=== PATIENT | female | born 1955 | race Caucasian/White ===

== ENCOUNTER 2017-05-27 15:16 | Emergency (ER) | payer OTHER ==
--- NOTE | 2017-05-27 15:24 | PDOC ---
Rapid Medical Evaluation Time Seen by Provider: 05/27/17 15:22 Medical Evaluation: Allergies Allergy/AdvReac Type Severity Reaction Status Date / Time Penicillins Allergy Verified 05/27/17 15:22 shellfish derived Allergy Verified 05/27/17 15:21 Sulfa (Sulfonamide Allergy Verified 05/27/17 15:21 Antibiotics) 05/27/17 15:22 I have performed a brief in person evaluation of this patient. The patient presents with chief complaint of : rectal pain , "bowel hanging out of rectum" Pertinent PE findings: none I have ordered the following: none The patient will proceed to the ER for further evaluation.
[2017-05-27 15:29] VITALS: TEMP 98; BMI 31.8
--- NOTE | 2017-05-27 17:06 | PDOC ---
History of Present Illness <Iris Linares - Last Filed: 05/27/17 17:21> - General History Source: Patient Exam Limitations: No Limitations - History of Present Illness Initial Comments: 05/27/17 17:57 The patient is a 61 year old female, A0, both vaginal deliveries, with a significant PMH of NIDDM, HLD, and brain aneurysm who presents to the emergency department complaining of a rectal prolapse after a bowel movement earlier today that spontaneously reduced. The patient states she was not straining when she had the bowel movement. As per the , the patient did have two episodes of watery diarrhea earlier but patient denies any dysuria, frequency, urgency and hematuria. The patient had another bowel movement here in the ER and had a second rectal prolapse that spontaneously reduced. The patient denies chest pain, shortness of breath, headache and dizziness. Denies fever, chills, nausea, vomit, diarrhea and constipation. Denies dysuria, frequency, urgency and hematuria. Allergies: Penicillins, shellfish derives, sulfa Past surgical history: None reported. Social history: Former smoker. No reported alcohol or drug use. PCP: Dr. Shoemaker <Leda Watkins - Last Filed: 05/27/17 18:00> - General Chief Complaint: Pain Stated Complaint: RECTAL PROLAPSE Time Seen by Provider: 05/27/17 15:22 Past History - Past Medical History COPD: No Diabetes: Yes (NIDDM) Hypercholesterolemia: Yes Psychiatric Problems: Yes (DEPRESSION) Lung CA: No Other medical history: BRAIN ANEYRYSM - Suicide/Smoking/Psychosocial Hx Smoking History: Former smoker Have you smoked in the past 12 months: No If you are a former smoker, when did you quit?: 2007 Information on smoking cessation initiated: No Hx Alcohol Use: No Drug/Substance Use Hx: No Substance Use Type: None <Iris Linares - Last Filed: 05/27/17 17:21> <Leda Watkins - Last Filed: 05/27/17 18:00> - Past Medical History Allergies/Adverse Reactions: Allergies Allergy/AdvReac Type Severity Reaction Status Date / Time Penicillins Allergy Verified 05/27/17 15:22 shellfish derived Allergy Verified 05/27/17 15:21 Sulfa (Sulfonamide Allergy Verified 05/27/17 15:21 Antibiotics) Home Medications: Ambulatory Orders Aripiprazole [Abilify] 2 mg PO DAILY 08/28/13 Aspirin 81 mg PO DAILY 05/27/17 Atorvastatin Ca [Lipitor] 40 mg PO DAILY 05/27/17 Donepezil HCl [Aricept -] 10 mg PO DAILY 05/27/17 Nitrofurantoin Monohyd/M-Cryst [Macrobid -] 100 mg PO DAILY 05/27/17 Sertraline HCl [Zoloft] 100 mg PO DAILY 05/27/17 Sitagliptin Phos/Metformin HCl [Janumet Xr 50-1,000 mg Tablet] 1 each PO BID Trihexyphenidyl HCl 2 mg PO DAILY 05/27/17 levETIRAcetam [Keppra -] 750 mg PO BID 05/27/17 Review of Systems - Review of Systems Able to Perform ROS?: Yes Comments:: 05/27/17 17:41 GENERAL/CONSTITUTIONAL: No fever or chills. No weakness. HEAD, EYES, EARS, NOSE AND THROAT: No change in vision. No ear pain or discharge. No sore throat. CARDIOVASCULAR: No chest pain or shortness of breath. RESPIRATORY: No cough, wheezing, or hemoptysis. GASTROINTESTINAL: No nausea, vomiting, diarrhea or constipation. GENITOURINARY: (+) Rectal prolapse. No dysuria, frequency, or change in urination. MUSCULOSKELETAL: No joint or muscle swelling or pain. No neck or back pain. SKIN: No rash NEUROLOGIC: No headache, vertigo, loss of consciousness, or change in strength/ sensation. ENDOCRINE: No increased thirst. No abnormal weight change. HEMATOLOGIC/LYMPHATIC: No anemia, easy bleeding, or history of blood clots. ALLERGIC/IMMUNOLOGIC: No hives or skin allergy. <Leda Watkins - Last Filed: 05/27/17 18:00> *Physical Exam - Vital Signs Last Vital Signs Temp Pulse Resp BP Pulse Ox 98.0 F 98 H 18 109/70 100 05/27/17 15:22 05/27/17 15:22 05/27/17 15:22 05/27/17 15:22 05/27/17 15:22 <Iris Linares - Last Filed: 05/27/17 17:21> - Vital Signs Last Vital Signs Temp Pulse Resp BP Pulse Ox 98.0 F 98 H 18 109/70 100 05/27/17 15:22 05/27/17 15:22 05/27/17 15:22 05/27/17 15:22 05/27/17 15:22 - Physical Exam Comments: 05/27/17 17:40 GENERAL: Awake, alert, and fully oriented, in no acute distress HEAD: No signs of trauma EYES: PERRLA, EOMI, sclera anicteric, conjunctiva clear ENT: Auricles normal inspection, hearing grossly normal, nares patent, oropharynx clear without exudates. Moist mucosa NECK: Normal ROM, supple, no lymphadenopathy, JVD, or masses LUNGS: Breath sounds equal, clear to auscultation bilaterally. No wheezes, and no crackles HEART: Regular rate and rhythm, normal S1 and S2, no murmurs, rubs or gallops ABDOMEN: Soft, nontender, normoactive bowel sounds. No guarding, no rebound. No masses : (+) Rectal tone reduced. (+) No prolapse. (+) No internal or external hemorrhoids. EXTREMITIES: Normal range of motion, no edema. No clubbing or cyanosis. No cords, erythema, or tenderness NEUROLOGICAL: Cranial nerves II through XII grossly intact. Normal speech, normal gait SKIN: Warm, Dry, normal turgor, no rashes or lesions noted. <Leda Watkins - Last Filed: 05/27/17 18:00> Medical Decision Making - Medical Decision Making 05/27/17 17:17 Pt presents to the ED complaining of what seems like rectal prolapse. PAteint and her saw " a thing" protruding from the patient's rectum after a bowel movement. PAteint was incontinent of stool immediately prior. When I examine her, I find that the prolapse has completely reduced and no evidence of hemmorrhoids. Patient does have low rectal tone. Since the prolapse has sponatenously reduced, there is nothing to do at this time. I have instructed the patient and her on the importance of adequate fiber and water in her diet and also that they should return to the ED if the prolapse returns and they are unable to reduce it. Will discharge with referral to [facility] and general surgery. <Iris Linares - Last Filed: 05/27/17 17:21> *DC/Admit/Observation/Transfer - Discharge Dispostion Admit: No <Iris Linares - Last Filed: 05/27/17 17:21> - Attestations Scribe Attestion: 05/27/17 17:41 Documentation prepared by Leda Watkins, acting as medical insurance coding specialist for Iris Linares MD. <Leda Watkins - Last Filed: 05/27/17 18:00> Diagnosis at time of Disposition: Rectal prolapse - Discharge Dispostion Disposition: HOME Condition at time of disposition: Good - Referrals Referrals: Carlos Enrique Shoemaker MD [Primary Care Provider] - Call tomorrow (Call colon Rectal surgeon (Dr. Santana) [phone]) - Patient Instructions Additional Instructions: make sure that you follow up with [facility] or general surgery--you may need surgery to treat your rectal prolapse. Return to the ED if the prolapse happens again and you are unable to reduce it. Also return for severe pain or bleeding, if you are unable to have a bowel movement. - Post Discharge Activity
[2017-05-27 18:18] VITALS: BP 146/75; PULSE 85
== END 2017-05-27 18:18 | disposition home or self-care (01) ==
LOC: JER 15:16
DX: K62.3 Rectal prolapse (principal); I10 Essential (primary) hypertension; E11.9 Type 2 diabetes mellitus without complications; Z79.84 Long term (current) use of oral hypoglycemic drugs; F32.9 Major depressive disorder, single episode, unspecified; Z86.79 Personal history of other diseases of the circulatory system
CPT/HCPCS: 99282-25

== ENCOUNTER 2017-08-10 08:56 | Day surgery (SDC) | payer OTHER ==
[2017-08-10] MEDS ORDERED: ASCORBIC ACID 500 MG TABLET (FP) PO SCH (10:00)
[2017-08-10] MEDS ORDERED: SERTRALINE HCL 50 MG TABLET (FP) PO SCH (10:00)
[2017-08-10] MEDS ORDERED: FERROUS SO4 325 MG TABLET (FP) PO SCH (10:00)
[2017-08-10] MEDS ORDERED: ARIPiprazole 2 MG TABLET PO SCH (10:00)
[2017-08-10 11:13] LABS: BASO % 1.5 % (0-2.0); EOS % 4.3 % (0-4.5); HEMATOCRIT 18.8 % (32.4-45.2); LYMPH % 22.3 % (8-40); MCHC 28.4 g/dl (32.0-36.0); MEAN CELL VOLUME 53.6 fl (80-96); MEAN PLT VOLUME 9.4 fl (7.5-11.1); NEUT % 65.9 % (42.8-82.8); PLATELET COUNT 236 K/MM3 (134-434); RBC 3.51 M/mm3 (3.60-5.2); RDW 21.8 % (11.6-15.6); WHITE BLOOD COUNT 7.3 K/mm3 (4.0-10.0)
[2017-08-10 11:20] LABS: HEMOGLOBIN 5.3 GM/dL (10.7-15.3); MCH 15.2 pg (25.7-33.7)
[2017-08-10] MEDS: sitaGLIPtin PHOSPHATE 50 MG TABLET PO SCH (17:25)
[2017-08-10] MEDS: metFORMIN HCL 500 MG TABLET (FP) PO SCH (17:25)
[2017-08-10] MEDS ORDERED: PT OWN MED DRAWER 7, Y5N ONE (17:27)
[2017-08-10] MEDS: levETIRAcetam 500 MG TABLET (FP) PO SCH ×2 (20:05→21:05)
[2017-08-10] MEDS ORDERED: DONEPEZIL HCL 10 MG TABLET (FP) PO SCH (22:00)
[2017-08-10] MEDS ORDERED: NITROFURANTOIN MACROCRYSTAL 50 MG CAPSULE (FP) PO SCH (22:00)
[2017-08-10 23:30] LABS: BASO % 0.9 % (0-2.0); EOS % 3.9 % (0-4.5); HEMATOCRIT 23.7 % (32.4-45.2); HEMOGLOBIN 7.5 GM/dL (10.7-15.3); LYMPH % 26.8 % (8-40); MCHC 31.6 g/dl (32.0-36.0); MEAN CELL VOLUME 60.1 fl (80-96); MEAN PLT VOLUME 8.9 fl (7.5-11.1); MONO % 6.3 % (3.8-10.2); NEUT % 62.1 % (42.8-82.8); PLATELET COUNT 230 K/MM3 (134-434); RBC 3.95 M/mm3 (3.60-5.2); RDW 33.5 % (11.6-15.6); WHITE BLOOD COUNT 10.2 K/mm3 (4.0-10.0)
[2017-08-10 23:31] LABS: ADD RBC MORPHOLOGY YES
[2017-08-11 00:26] LABS: ANISOCYTOSIS 3+
[2017-08-11 02:14] VITALS: BP 168/77; PULSE 73; TEMP 97.7
[2017-08-11] MEDS: metFORMIN HCL 500 MG TABLET (FP) PO SCH (06:33)
[2017-08-11] MEDS: sitaGLIPtin PHOSPHATE 50 MG TABLET PO SCH (06:33)
--- NOTE | 2017-08-11 09:54 | HP ---
[facility] - Chief Complaint Chief Complaint: anemia History of Present Illness: 61 yo female , found to be anemic upon undergoing pre-operative clearance for rectal prolapse surgery. No shortness fo breath, no chest pain, no dizziness. Likely bleeding from prolapse. Now here for blood transfusion to optimize for surgery. 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: CVA (s/p subarachnoid hemorrhage), Dementia (mild cognitive dysfunction following CVA), Seizure Cardiovascular: Yes: HTN, Hyperlipdemia Gastrointestinal: Yes: Constipation, Other (rectal prolapse) Renal/: Yes: UTI Endocrine: Yes: Diabetes Mellitus - Current Medications Current Medications: Home Medications Medication Instructions Recorded Aripiprazole [Abilify] 2 mg PO DAILY 08/28/13 Aspirin 81 mg PO DAILY 05/27/17 Atorvastatin Ca [Lipitor] 40 mg PO DAILY 05/27/17 Donepezil HCl [Aricept -] 10 mg PO DAILY 05/27/17 Nitrofurantoin Monohyd/M-Cryst 100 mg PO DAILY 05/27/17 [Macrobid -] Sertraline HCl [Zoloft] 100 mg PO DAILY 05/27/17 Sitagliptin Phos/Metformin HCl 1 each PO BID 05/27/17 [Janumet Xr 50-1,000 mg Tablet] Trihexyphenidyl HCl 2 mg PO DAILY 05/27/17 levETIRAcetam [Keppra -] 750 mg PO BID 05/27/17 Satellite Physical Exam - Physical Examination Vital Signs: Vital Signs Period Temp Pulse Resp BP Sys/Gilbert Pulse Ox Last 24 Hr 97.6 F-98.2 F 73-86 18-20 141-168/74-83 General Appearance: Well Nourished, Well Developed, Alert & Oriented x3 ENT: Clear, No Discharge Lung: Clear to auscultation Heart: Regular rate & rhythm, Normal S1, Normal S2 Abdomen: Soft, No tenderness, No hepatosplenomegaly, No masses Extremities: No edema, No tenderness/swelling Satellite Impression/Plan - Impression/Plan Impression: Anemia -aba transfuse 2-3 units, started on iron as well Operative Procedure: transfusion Date to be Performed: 08/10/17
[2017-08-11] MEDS ORDERED: ATORVASTATIN CA 40 MG TABLET (FP) PO SCH (10:00)
== END 2017-08-11 10:46 | disposition home or self-care (01) ==
LOC: J7W 08:56 → JBLOOD 08:56
PROVIDERS: ATTEND Specialist
PROC: 30233N1 Transfusion of Nonautologous Red Blood Cells into Peripheral Vein, Percutaneous Approach (ICD-10-PCS; principal; 2017-08-10)
DX: D64.9 Anemia, unspecified (principal); I10 Essential (primary) hypertension; E78.5 Hyperlipidemia, unspecified; E11.9 Type 2 diabetes mellitus without complications
CPT/HCPCS: 36415; 36430; 85025; 86850; 86900; 86901; 86922; P9038; P9058

== ENCOUNTER 2017-08-22 08:12 | Day surgery (SDC) | payer OTHER ==
[2017-08-22 09:04] LABS: HEMATOCRIT 30.9 % (32.4-45.2); HEMOGLOBIN 9.5 GM/dL (10.7-15.3); MCHC 30.6 g/dl (32.0-36.0); PLATELET COUNT 158 K/MM3 (134-434); RBC 4.75 M/mm3 (3.60-5.2); RDW 37.3 % (11.6-15.6); WHITE BLOOD COUNT 10.2 K/mm3 (4.0-10.0)
[2017-08-22 09:14] LABS: MCH 19.9 pg (25.7-33.7)
[2017-08-22 11:40] LABS: ANISOCYTOSIS 2+
[2017-08-22 14:42] LABS: HEMATOCRIT 32.1 % (32.4-45.2); MCH 20.7 pg (25.7-33.7); MCHC 31.1 g/dl (32.0-36.0); MEAN CELL VOLUME 66.4 fl (80-96); MEAN PLT VOLUME 9.2 fl (7.5-11.1); PLATELET COUNT 164 K/MM3 (134-434); RBC 4.84 M/mm3 (3.60-5.2); RDW 37.4 % (11.6-15.6); WHITE BLOOD COUNT 10.5 K/mm3 (4.0-10.0)
[2017-08-22 14:47] VITALS: BP 149/83; PULSE 70; TEMP 98.4
--- NOTE | 2017-08-23 12:54 | HP ---
[facility] - Chief Complaint Chief Complaint: Anemia History of Present Illness: 62 yo female requiring urgent rectal prolapse surgery, here for blood transfusion prior to procedure to optimize her medically. Received 3 units last week, now to get 1 further unit prior to surgery in 5 days. 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: CVA (s/p subarachnoid hemorrhage), Dementia (mild cognitive dysfunction following CVA), Seizure Cardiovascular: Yes: HTN, Hyperlipdemia Gastrointestinal: Yes: Constipation, Other (rectal prolapse) Renal/: Yes: UTI Endocrine: Yes: Diabetes Mellitus - Current Medications Current Medications: Home Medications Medication Instructions Recorded Aripiprazole [Abilify] 2 mg PO DAILY 08/28/13 Atorvastatin Ca [Lipitor] 40 mg PO DAILY 05/27/17 Donepezil HCl [Aricept -] 10 mg PO HS 05/27/17 Nitrofurantoin Monohyd/M-Cryst 100 mg PO HS 05/27/17 [Macrobid -] RX: Aspirin 81 mg PO DAILY 05/27/17 RX: Trihexyphenidyl HCl 2 mg PO DAILY 05/27/17 Sertraline HCl [Zoloft] 100 mg PO DAILY 05/27/17 Sitagliptin Phos/Metformin HCl 1 each PO BID 05/27/17 [Janumet Xr 50-1,000 mg Tablet] levETIRAcetam [Keppra -] 750 mg PO BID 05/27/17 Satellite Physical Exam - Physical Examination Vital Signs: Vital Signs Period Temp Pulse Resp BP Sys/Gilbert Pulse Ox Last 24 Hr 97.9 F-98.4 F 70-72 15-15 149-151/83-87 General Appearance: Well Nourished, Well Developed Heart: Regular rate & rhythm, Normal S1, Normal S2 Abdomen: No tenderness, Normal bowel sounds, No CVA Extremities: No tenderness/swelling Neurological: Alert, Oriented Satellite Impression/Plan - Impression/Plan Impression: Anemia due to blood loss from rectal prolapse Operative Procedure: transfuse 1 unit PRBC Date to be Performed: 08/22/17
== END 2017-08-22 15:03 | disposition home or self-care (01) ==
LOC: JBLOOD 08:12
PROVIDERS: ATTEND Specialist
PROC: 30233N1 Transfusion of Nonautologous Red Blood Cells into Peripheral Vein, Percutaneous Approach (ICD-10-PCS; principal; 2017-08-22)
DX: D64.9 Anemia, unspecified (principal); I10 Essential (primary) hypertension; E78.5 Hyperlipidemia, unspecified; E11.9 Type 2 diabetes mellitus without complications
CPT/HCPCS: 36415; 36430; 85027; 86850; 86900; 86901; 86922; P9038; P9058

== ENCOUNTER 2022-07-15 15:00 | Inpatient (IN) | payer OTHER ==
[2022-07-15] MEDS ORDERED: ACETAMINOPHEN 500 MG TABLET (FP) PO ONE (15:37)
[2022-07-15] MEDS ORDERED: ACETAMINOPHEN 325 MG TABLET (FP) ONE (15:44)
[2022-07-15] MEDS ORDERED: morphine CARPU-JECT 4 MG/1 ML DISP.SYRIN IVPUSH ONE (18:02)
[2022-07-15] MEDS ORDERED: LIDOCAINE HCL 1%, 10 MG/ML (50 mL VIAL) SQ ONE (18:05)
[2022-07-15] MEDS ORDERED: morphine SULFATE 4 MG/ML VIAL ONE (18:11)
[2022-07-15] MEDS ORDERED: LIDOCAINE HCL 1%, 10 MG/ML (10ML VIAL) MDV ONE (18:28)
[2022-07-15 19:16] LABS: BASO % 0.4 % (0-2.0); EOS % 0.2 % (0-4.5); HEMOGLOBIN 10.6 GM/dL (10.7-15.3); LYMPH % 7.8 % (8-40); MCH 27.9 pg (25.7-33.7); MCHC 33.2 g/dl (32.0-36.0); MEAN CELL VOLUME 84.2 fl (80-96); MEAN PLT VOLUME 9.4 fl (7.5-11.1); MONO % 3.8 % (3.8-10.2); NEUT % 87.8 % (42.8-82.8); PLATELET COUNT 185 10^3/uL (134-434); RBC 3.81 M/mm3 (3.60-5.2); RDW 13.8 % (11.6-15.6); WHITE BLOOD COUNT 13.8 K/mm3 (4.0-10.0)
[2022-07-15 19:24] LABS: INR 1.14 (0.83-1.09); PROTHROMBIN TIME (PATIENT) 13.2 SEC (9.7-13.0)
[2022-07-15 19:26] LABS: ACTIVATED PTT 30.2 SECONDS (25.2-36.5)
[2022-07-15 19:57] LABS: ALBUMIN 4.1 g/dl (3.4-5.0); BLOOD UREA NITROGEN 15.8 mg/dL (7-18); CALCIUM 9.5 mg/dL (8.5-10.1)
[2022-07-15 20:00] LABS: CREATININE 0.7 mg/dL (0.55-1.3)
[2022-07-15 20:02] LABS: BILIRUBIN,TOTAL 0.3 mg/dL (0.2-1); TOT PROT 7.8 g/dl (6.4-8.2)
[2022-07-15] MEDS ORDERED: INSULIN SLIDING SCALE (NOVOLOG) 1 VIAL SQ SCH (22:00)
[2022-07-15] MEDS ORDERED: NITROFURANTOIN MACROCRYSTAL 50 MG CAPSULE (FP) PO SCH (22:00)
[2022-07-15] MEDS ORDERED: levETIRAcetam 500 MG TABLET (FP) PO ONE (22:04)
[2022-07-15] MEDS ORDERED: NITROFURANTOIN MACROCRYSTAL 50 MG CAPSULE (FP) ONE (22:04)
[2022-07-15] MEDS ORDERED: SERTRALINE HCL 50 MG TABLET (FP) ONE (22:04)
[2022-07-15] MEDS ORDERED: ATORVASTATIN CA 40 MG TABLET (FP) ONE (22:04)
[2022-07-15] MEDS ORDERED: propRANOLol HCL 10 MG TABLET ONE (22:05)
[2022-07-15] MEDS: levETIRAcetam 500 MG TABLET (FP) PO SCH (22:15)
[2022-07-15] MEDS: propRANOLol HCL 10 MG TABLET PO SCH (22:15)
[2022-07-15] MEDS: SERTRALINE HCL 50 MG TABLET (FP) PO SCH (22:16)
[2022-07-15] MEDS: ATORVASTATIN CA 40 MG TABLET (FP) PO SCH (22:16)
[2022-07-15] MEDS: ARIPiprazole 2 MG TABLET PO SCH (22:17)
[2022-07-16] MEDS: INSULIN SLIDING SCALE (NOVOLOG) 1 VIAL SQ SCH ×3 (01:21→22:37)
[2022-07-16 03:21] VITALS: BMI 30.2
[2022-07-16] MEDS: ACETAMINOPHEN 1000 MG/100 ML BAG IVPB SCH ×2 (05:47→14:11)
[2022-07-16] MEDS ORDERED: ACETAMINOPHEN 500 MG TABLET (FP) PO PRN ×2 (09:18→17:07)
[2022-07-16] MEDS: levETIRAcetam 500 MG TABLET (FP) PO SCH ×2 (10:09→22:27)
[2022-07-16] MEDS: ATORVASTATIN CA 40 MG TABLET (FP) PO SCH (10:09)
[2022-07-16] MEDS: SERTRALINE HCL 50 MG TABLET (FP) PO SCH (10:09)
[2022-07-16] MEDS ORDERED: INSULIN SLIDING SCALE (NOVOLOG) 1 VIAL SQ SCH (10:18)
[2022-07-16 10:43] LABS: HEMATOCRIT 28.8 % (32.4-45.2); HEMOGLOBIN 9.9 GM/dL (10.7-15.3); MCH 28.4 pg (25.7-33.7); MCHC 34.3 g/dl (32.0-36.0); MEAN CELL VOLUME 82.8 fl (80-96); PLATELET COUNT 171 10^3/uL (134-434); RBC 3.48 M/mm3 (3.60-5.2); RDW 13.9 % (11.6-15.6); WHITE BLOOD COUNT 7.7 K/mm3 (4.0-10.0)
[2022-07-16 10:49] LABS: ALBUMIN 3.8 g/dl (3.4-5.0); BLOOD UREA NITROGEN 16.8 mg/dL (7-18); MAGNESIUM 1.4 mg/dL (1.8-2.4)
[2022-07-16 10:52] LABS: CREATININE 0.8 mg/dL (0.55-1.3); PHOSPHOROUS 3.8 mg/dL (2.5-4.9)
[2022-07-16 10:54] LABS: BILIRUBIN,TOTAL 0.6 mg/dL (0.2-1)
[2022-07-16] MEDS: ARIPiprazole 2 MG TABLET PO SCH (12:04)
[2022-07-16] MEDS: propRANOLol HCL 10 MG TABLET PO SCH ×2 (12:04→23:06)
[2022-07-16] MEDS ORDERED: DEXTROSE 5%-LACTATED RINGERS 1,000 ML IV SCH ×2 (13:00→17:07)
[2022-07-16] MEDS ORDERED: ceFAZolin SODIUM 1 GM VIAL ONE (13:30)
[2022-07-16] MEDS ORDERED: DEXMEDETOMIDINE HCL 200 MCG/2 ML IVPB ONE (14:10)
[2022-07-16] MEDS ORDERED: ACETAMINOPHEN INJECTION 100 ML IVPB ONE (14:11)
[2022-07-16] MEDS ORDERED: ALBUMIN HUMAN 5% 250 ML IV SOLUTION IV ONE ×2 (15:00→17:07)
[2022-07-16] MEDS ORDERED: CLINDAMYCIN 900 MG PREMIX BAG IVPB ONE (15:05)
[2022-07-16] MEDS ORDERED: TRANEXAMIC ACID 1000 MG/10 ML VIAL ONE (15:24)
[2022-07-16] MEDS ORDERED: BUPIVACAINE HCL/PF 0.5% (5MG/ML) 10 ML VIAL ONE (16:32)
[2022-07-16] MEDS ORDERED: BUPIVACAINE HCL/PF 0.5% (5MG/ML) 10 ML VIAL IJ ONE (16:39)
[2022-07-16] MEDS ORDERED: LACTATED RINGERS SOLUTION 1,000 ML IV SCH (17:00)
[2022-07-16] MEDS ORDERED: SENNOSIDES/DOCUSATE COMBO (SENNA PLUS) TABLET (UD) PO SCH (22:00)
[2022-07-16] MEDS: NITROFURANTOIN MACROCRYSTAL 50 MG CAPSULE (FP) PO SCH (22:25)
[2022-07-16] MEDS: SENNOSIDES/DOCUSATE COMBO (SENNA PLUS) TABLET (UD) PO SCH (22:26)
[2022-07-17] MEDS ORDERED: ACETAMINOPHEN 1000 MG/100 ML BAG IVPB SCH
[2022-07-17] MEDS: ACETAMINOPHEN 1000 MG/100 ML BAG IVPB SCH ×3 (01:22→17:20)
[2022-07-17] MEDS ORDERED: CLINDAMYCIN 900 MG PREMIX IVPB 50 ML IVPB ONE (03:00)
[2022-07-17] MEDS ORDERED: CLINDAMYCIN 900 MG PREMIX IVPB 900 MG/50 ML BAG IVPB ONE (03:00)
[2022-07-17] MEDS: INSULIN SLIDING SCALE (NOVOLOG) 1 VIAL SQ SCH ×4 (06:49→21:16)
[2022-07-17] MEDS ORDERED: ROCURONIUM BROMIDE 50 MG/5 ML SYRINGE ONE (07:11)
[2022-07-17] MEDS ORDERED: SUCCINYLCHOLINE CHLORIDE 200 MG/10 ML SYRINGE ONE (07:11)
[2022-07-17] MEDS ORDERED: PROPOFOL 40 ML ONE (07:12)
[2022-07-17] MEDS: ENOXAPARIN NA (PORCINE) 40 MG/0.4 ML DISP.SYRIN SQ SCH (09:59)
[2022-07-17] MEDS: ATORVASTATIN CA 40 MG TABLET (FP) PO SCH (09:59)
[2022-07-17] MEDS ORDERED: PANTOPRAZOLE 40 MG TABLET PO SCH (10:00)
[2022-07-17] MEDS: levETIRAcetam 500 MG TABLET (FP) PO SCH ×2 (10:01→21:13)
[2022-07-17] MEDS: SENNOSIDES/DOCUSATE COMBO (SENNA PLUS) TABLET (UD) PO SCH (10:01)
[2022-07-17] MEDS: SERTRALINE HCL 50 MG TABLET (FP) PO SCH (10:02)
[2022-07-17] MEDS: ARIPiprazole 2 MG TABLET PO SCH (10:02)
[2022-07-17] MEDS: propRANOLol HCL 10 MG TABLET PO SCH ×2 (10:02→21:12)
[2022-07-17] MEDS: PANTOPRAZOLE 40 MG TABLET PO SCH (10:03)
[2022-07-17 10:42] LABS: BASO % 0.5 % (0-2.0); EOS % 0.6 % (0-4.5); HEMOGLOBIN 11.6 GM/dL (10.7-15.3); LYMPH % 7.6 % (8-40); MCH 28.8 pg (25.7-33.7); MEAN CELL VOLUME 82.2 fl (80-96); MEAN PLT VOLUME 10.5 fl (7.5-11.1); MONO % 6.8 % (3.8-10.2); NEUT % 84.5 % (42.8-82.8); PLATELET COUNT 148 10^3/uL (134-434); RBC 4.02 M/mm3 (3.60-5.2); RDW 14.3 % (11.6-15.6)
[2022-07-17 11:20] LABS: ALBUMIN 3.6 g/dl (3.4-5.0); BLOOD UREA NITROGEN 13.9 mg/dL (7-18); CALCIUM 8.9 mg/dL (8.5-10.1)
[2022-07-17 11:21] LABS: MAGNESIUM 1.2 mg/dL (1.8-2.4)
[2022-07-17 11:24] LABS: CREATININE 0.7 mg/dL (0.55-1.3); PHOSPHOROUS 3.3 mg/dL (2.5-4.9)
[2022-07-17 11:25] LABS: BILIRUBIN,TOTAL 0.9 mg/dL (0.2-1)
[2022-07-17 11:26] LABS: TOT PROT 6.8 g/dl (6.4-8.2)
[2022-07-17] MEDS: NITROFURANTOIN MACROCRYSTAL 50 MG CAPSULE (FP) PO SCH (21:13)
[2022-07-17] MEDS: SENNOSIDES 8.6MG TABLET (FP) PO SCH (21:30)
[2022-07-17] MEDS ORDERED: SENNOSIDES 8.6MG TABLET (FP) PO SCH (22:00)
[2022-07-18] MEDS: ACETAMINOPHEN 1000 MG/100 ML BAG IVPB SCH ×2 (01:12→11:19)
[2022-07-18] MEDS: INSULIN SLIDING SCALE (NOVOLOG) 1 VIAL SQ SCH ×4 (06:04→22:09)
[2022-07-18 07:04] LABS: PH,URINE 5.5 (5.0-8.0); URINE APPEARANCE CLEAR; URINE BILIRUBIN NEGATIVE (NEGATIVE); URINE COLOR DK YELLOW; URINE GLUCOSE (UA) NEGATIVE (NEGATIVE); URINE KETONE 1+ (NEGATIVE); URINE LEUK ESTERASE NEGATIVE (NEGATIVE); URINE NITRITE NEGATIVE (NEGATIVE); URINE PROTEIN TRACE (NEGATIVE); URINE UROBILINOGEN 0.2 mg/dL (0.2-1.0)
[2022-07-18 10:37] LABS: BASO % 0.5 % (0-2.0); HEMATOCRIT 31.9 % (32.4-45.2); MCH 28.3 pg (25.7-33.7); MCHC 34.4 g/dl (32.0-36.0); MEAN CELL VOLUME 82.2 fl (80-96); MEAN PLT VOLUME 10.3 fl (7.5-11.1); MONO % 7.2 % (3.8-10.2); NEUT % 79.3 % (42.8-82.8); PLATELET COUNT 151 10^3/uL (134-434); RBC 3.88 M/mm3 (3.60-5.2); RDW 14.7 % (11.6-15.6); WHITE BLOOD COUNT 10.1 K/mm3 (4.0-10.0)
[2022-07-18 11:04] LABS: BLOOD UREA NITROGEN 15.1 mg/dL (7-18); CALCIUM 9.4 mg/dL (8.5-10.1); MAGNESIUM 1.6 mg/dL (1.8-2.4)
[2022-07-18 11:05] LABS: ALBUMIN 3.4 g/dl (3.4-5.0)
[2022-07-18 11:06] LABS: PHOSPHOROUS 2.6 mg/dL (2.5-4.9)
[2022-07-18 11:07] LABS: BILIRUBIN,TOTAL 0.8 mg/dL (0.2-1); CREATININE 0.6 mg/dL (0.55-1.3)
[2022-07-18 11:08] LABS: TOT PROT 6.8 g/dl (6.4-8.2)
[2022-07-18] MEDS: SERTRALINE HCL 50 MG TABLET (FP) PO SCH (11:16)
[2022-07-18] MEDS: SENNOSIDES 8.6MG TABLET (FP) PO SCH ×2 (11:16→22:01)
[2022-07-18] MEDS: levETIRAcetam 500 MG TABLET (FP) PO SCH ×2 (11:16→22:00)
[2022-07-18] MEDS: ARIPiprazole 2 MG TABLET PO SCH (11:17)
[2022-07-18] MEDS: POLYETHYLENE GLYCOL (HEALTHYLAX) 3350 17 GM PACKET PO SCH (11:18)
[2022-07-18] MEDS: propRANOLol HCL 10 MG TABLET PO SCH ×2 (11:18→22:02)
[2022-07-18] MEDS: ENOXAPARIN NA (PORCINE) 40 MG/0.4 ML DISP.SYRIN SQ SCH (11:18)
[2022-07-18] MEDS: ATORVASTATIN CA 40 MG TABLET (FP) PO SCH (11:18)
[2022-07-18] MEDS: PANTOPRAZOLE 40 MG TABLET PO SCH (11:20)
[2022-07-18] MEDS ORDERED: INSULIN (NOVOLOG) ASPART 100 UNITS/ML 10ML VIAL ONE ×2 (11:35→21:55)
[2022-07-18] MEDS: NITROFURANTOIN MACROCRYSTAL 50 MG CAPSULE (FP) PO SCH (21:59)
[2022-07-19] MEDS: INSULIN SLIDING SCALE (NOVOLOG) 1 VIAL SQ SCH ×4 (07:52→22:17)
[2022-07-19] MEDS: ENOXAPARIN NA (PORCINE) 40 MG/0.4 ML DISP.SYRIN SQ SCH (09:44)
[2022-07-19] MEDS: SENNOSIDES 8.6MG TABLET (FP) PO SCH ×2 (09:45→22:18)
[2022-07-19] MEDS: ATORVASTATIN CA 40 MG TABLET (FP) PO SCH (09:45)
[2022-07-19] MEDS: SERTRALINE HCL 50 MG TABLET (FP) PO SCH (09:45)
[2022-07-19] MEDS: ARIPiprazole 2 MG TABLET PO SCH (09:45)
[2022-07-19] MEDS: propRANOLol HCL 10 MG TABLET PO SCH ×2 (09:45→22:18)
[2022-07-19] MEDS: levETIRAcetam 500 MG TABLET (FP) PO SCH ×2 (09:46→22:18)
[2022-07-19] MEDS: PANTOPRAZOLE 40 MG TABLET PO SCH (10:20)
[2022-07-19] MEDS: POLYETHYLENE GLYCOL (HEALTHYLAX) 3350 17 GM PACKET PO SCH (10:20)
[2022-07-19] MEDS: ACETAMINOPHEN 500 MG TABLET (FP) PO PRN (12:44)
[2022-07-19 15:21] VITALS: RESP 18
[2022-07-19] MEDS: NITROFURANTOIN MACROCRYSTAL 50 MG CAPSULE (FP) PO SCH (22:18)
[2022-07-20] MEDS: ACETAMINOPHEN 500 MG TABLET (FP) PO PRN (03:23)
[2022-07-20] MEDS: INSULIN SLIDING SCALE (NOVOLOG) 1 VIAL SQ SCH ×3 (06:24→17:48)
[2022-07-20] MEDS: ATORVASTATIN CA 40 MG TABLET (FP) PO SCH (10:04)
[2022-07-20] MEDS: levETIRAcetam 500 MG TABLET (FP) PO SCH (10:04)
[2022-07-20] MEDS: SERTRALINE HCL 50 MG TABLET (FP) PO SCH (10:04)
[2022-07-20] MEDS: SENNOSIDES 8.6MG TABLET (FP) PO SCH (10:04)
[2022-07-20] MEDS: ENOXAPARIN NA (PORCINE) 40 MG/0.4 ML DISP.SYRIN SQ SCH (10:05)
[2022-07-20] MEDS: propRANOLol HCL 10 MG TABLET PO SCH (10:05)
[2022-07-20] MEDS: PANTOPRAZOLE 40 MG TABLET PO SCH (10:05)
[2022-07-20] MEDS: ARIPiprazole 2 MG TABLET PO SCH (10:05)
[2022-07-20] MEDS: POLYETHYLENE GLYCOL (HEALTHYLAX) 3350 17 GM PACKET PO SCH (10:05)
[2022-07-20 14:29] VITALS: BP 129/73; PULSE 96; TEMP 97.2
== END 2022-07-20 19:42 | DRG 522 ==
LOC: JER 15:00 → JERBED 19:38 → J6S 07-16 01:11
PROVIDERS: ADMIT Internal Medicine; ATTEND Internal Medicine
PROC: 0SRS0JZ Replacement of Left Hip Joint, Femoral Surface with Synthetic Substitute, Open Approach (ICD-10-PCS; principal; 2022-07-16 15:00)
PROC: 0PSJ04Z Reposition Left Radius with Internal Fixation Device, Open Approach (ICD-10-PCS; 2022-07-16 15:00)
DX: S72.012A Unspecified intracapsular fracture of left femur, initial encounter for closed fracture (principal); S52.532A Colles' fracture of left radius, initial encounter for closed fracture; E11.9 Type 2 diabetes mellitus without complications; G25.0 Essential tremor; G40.909 Epilepsy, unspecified, not intractable, without status epilepticus; W01.0XXA Fall on same level from slipping, tripping and stumbling without subsequent striking against object, initial encounter; Y93.89 Activity, other specified; Y92.008 Other place in unspecified non-institutional (private) residence as the place of occurrence of the external cause; Y99.8 Other external cause status; Z86.73 Personal history of transient ischemic attack (TIA), and cerebral infarction without residual deficits; F32.A Depression, unspecified; Z79.84 Long term (current) use of oral hypoglycemic drugs
CPT/HCPCS: 36415; 36430; 70450-TC; 71045-TC-FY; 72125-TC; 72170-TC-FY; 72192-TC; 73110-TC-LT-FY; 73502-TC-LT-FY; 73552-TC-LT-FY; 73562-TC-LT-FY; 76000-TC-FY; 80048; 80053; 81003; 82962; 83735; 84100; 84439; 84443; 85025; 85027; 85610; 85730; 86850; 86900; 86901; 86922; 87086; 88305-TC; 88311-TC; 93005; 93010; 93306-TC; 94760; 97116-GP; 97162-GP; 99285-25; C1713; C1776; C9803-CS; P9058; U0003; U0005